=== PATIENT | female | born 1995 | race Two or more races ===

== ENCOUNTER 2018-02-18 12:22 | Emergency (ER) | payer BC ==
[~2018-02-18] VITALS: Ht 162.6 cm; Wt 65.8 kg
[2018-02-18 12:37] VITALS: BP 140/90
== END 2018-02-18 13:45 | disposition home or self-care (01) ==
LOC: EDBD 12:22 → ER 12:22
DX: S20.219A Contusion of unspecified front wall of thorax, initial encounter (principal); V43.52XA Car driver injured in collision with other type car in traffic accident, initial encounter; Y93.89 Activity, other specified; Y99.8 Other external cause status; Y92.410 Unspecified street and highway as the place of occurrence of the external cause
CPT/HCPCS: 71046